=== PATIENT | female | born 1965 | race Caucasian/White ===

== ENCOUNTER → 2017-02-15 | Outpatient (CLI) | payer OTHER ==
[~2017-02-15] MED LIST: CARAFATE 1 GM TA1 GM PO; GAS-X125 MG PO; IBU400 MG PO; NORCO 7.5-3251 EACH PO; PROTONIX40 MG PO; ZOFRAN ODT4 MG PO
== END ==
LOC: M.MRI 11:12
DX: N63.20 Unspecified lump in the left breast, unspecified quadrant (principal); N63.10 Unspecified lump in the right breast, unspecified quadrant; Z80.3 Family history of malignant neoplasm of breast

== ENCOUNTER 2017-11-23 18:27 | Emergency (ER) | payer OTHER ==
[~2017-11-23] VITALS: Ht 165.1 cm; Wt 54.4 kg
[2017-11-23] MEDS ORDERED: GAS-X125 MG PO (19:03)
[2017-11-23] MEDS ORDERED: IBU400 MG PO (19:03)
[2017-11-23 19:18] LABS: URINE BILIRUBIN NEGATIVE (Negative); URINE BLOOD NEGATIVE (Negative); URINE CLARITY CLEAR; URINE COLOR YELLOW; URINE GLUCOSE-RANDOM NEGATIVE (Negative); URINE KETONES NEGATIVE (Negative); URINE LEUKOCYTES-REFLEX NEGATIVE (Negative); URINE NITRITE-REFLEX NEGATIVE (Negative); URINE PROTEIN NEGATIVE (Negative); URINE SPECIFIC GRAVITY 1.015 (1.005-1.030); URINE UROBILINOGEN 0.2 E.U./dl (0.2-1.0)
[2017-11-23 20:27] LABS: HEMATOCRIT 41.4 % (37.0-47.0); HEMOGLOBIN 14.3 gm/dL (12.0-15.0); MCH 30.5 pg (26.0-34.0); MCHC 34.4 g/dL (28.0-37.0); MCV 88.6 fL (80.0-100.0); MPV 8.2 fl. (7.2-11.1); NUCLEATED RBCS 0 /100WBC; PLATELET COUNT* 253 thou/uL (150-400); RBC 4.68 mil/uL (4.20-5.00); RDW-CV 12.5 % (10.5-14.5); WBC 9.6 thou/uL (4.0-11.0)
[2017-11-23 20:33] LABS: CALCIUM 8.9 mg/dL (8.5-10.1); CREATININE 0.7 mg/dL (0.6-1.3); POTASSIUM 3.5 mmol/L (3.5-5.1)
[2017-11-23 20:38] LABS: ALBUMIN 3.7 g/dL (3.4-5.0); TOTAL BILIRUBIN 0.6 mg/dL (<0.1-1.0); TOTAL PROTEIN 7.2 g/dL (6.4-8.2)
[2017-11-23 20:57] LABS: ABSOLUTE BASOPHILS 0.1 thou/uL (0.0-0.2); ABSOLUTE MONOCYTES 0.4 thou/uL (0.0-1.2); ABSOLUTE NEUTROPHILS 8.2 thou/uL (1.6-8.1)
[2017-11-23 20:58] LABS: PLATELET ESTIMATE ADEQUATE
[2017-11-23] MEDS ORDERED: PROTONIX40 MG PO (22:15)
[2017-11-23] MEDS ORDERED: CARAFATE 1 GM TA1 GM PO (22:15)
[2017-11-23] MEDS ORDERED: NORCO 7.5-3251 EACH PO (22:15)
[2017-11-23] MEDS ORDERED: ZOFRAN ODT4 MG PO (22:15)
[2017-11-23 22:44] VITALS: BP 131/73
== END 2017-11-23 22:48 | disposition home or self-care (01) ==
LOC: M.ERS 18:27
PROVIDERS: Emergency Medicine
DX: N20.0 Calculus of kidney (principal)

== ENCOUNTER → 2018-07-25 | Outpatient (CLI) | payer OTHER | LOC: M.RAD 10:30 | DX: Z12.31 Encounter for screening mammogram for malignant neoplasm of breast (principal) ==

== ENCOUNTER → 2019-11-11 | Outpatient (CLI) | payer OTHER | LOC: M.RAD 09:57 | PROVIDERS: ATTEND Family Medicine | DX: Z12.31 Encounter for screening mammogram for malignant neoplasm of breast (principal) ==

== ENCOUNTER → 2019-12-04 | Outpatient (CLI) | payer OTHER | LOC: M.ULTRA 11-22 09:00 | PROVIDERS: ATTEND Family Medicine | DX: N63.10 Unspecified lump in the right breast, unspecified quadrant (principal) ==